=== PATIENT | female | born 1970 | race American Indian/Alaskan Native ===

== ENCOUNTER 2017-01-13 23:45 | Emergency (ER) | payer OTHER ==
[2017-01-14 01:37] LABS: Basophils % (Auto) 0.7 % (0.0-1.8); Hemoglobin 10.2 gm/dl (10.1-14.3); Mean Corpuscular HGB Conc 32 % (30-34); Mean Corpuscular Hemoglobin 26 pg (28-32); Mean Corpuscular Volume 82 fl (79-97); Platelet Count 171 K/mm3 (140-440); Red Blood Count 3.93 M/mm3 (3.65-5.03); Red Cell Distribution Width 17.3 % (13.2-15.2); White Blood Count 5.8 K/mm3 (4.5-11.0)
[2017-01-14 01:45] LABS: Anion Gap 16 mmol/L; BUN/Creatinine Ratio 15.71; Blood Urea Nitrogen 11 mg/dL (7-17); Calcium 8.8 mg/dL (8.4-10.2); Carbon Dioxide 21 mmol/L (22-30); Chloride 101.9 mmol/L (98-107); Glucose 100 mg/dL (65-100); Sodium 135 mmol/L (137-145)
[2017-01-14 02:22] LABS: Erythrocyte Sedimentation Rate 14 mm/Hr (0-20)
[2017-01-14] MEDS ORDERED: BENADRYL PO ONE (06:38)
--- NOTE | 2017-01-14 08:09 | Emergency Department Report ---
ED Rash HPI - HPI Chief Complaint: Skin Rash Stated Complaint: RASH/POSS ALLERGIC REACTION Time Seen by Provider: 01/14/17 07:48 Duration: 2 weeks Location: Chest, Back, Abdomen, Upper Extremities Suspected Cause: Unknown Rash Symptoms: Yes Itching, No Facial Swelling, No Tongue/Oral Swelling, No Breathing Difficulties, No Choking Sensation, No Wheezing/Dyspnea, No Peeling, No Blistering, No Fever, No Lightheaded, No Malaise, No Myalgias Severity: moderate Other History: This is a 46-year-old female nontoxic, well nourished in appearance, no acute signs of distress the presented to the ED complaining of rash with itching 2 weeks. Patient stated she had been drinking coffee at work and [employer] and realized there was bubbles and believes she was poisoned which develop or skin rash. Patient stated ever since she stopped drinking coffee for work. She has decreased but still present. She stated the rash is spreading more as days go by. Patient denies any sick contact. Denies shortness of breath, chest pain, fever, chills, headache, nausea, vomiting, numbness or tingling. Patient denies any allergies. Denies past medical history. Denies pain. Last menstrual period 12/27/16. Patient denies any chance of being . ED Review of Systems ROS: Stated complaint: RASH/POSS ALLERGIC REACTION Other details as noted in HPI Constitutional: denies: chills, fever Eyes: denies: eye pain, eye discharge, vision change ENT: denies: ear pain, throat pain Respiratory: denies: cough, shortness of breath, wheezing Cardiovascular: denies: chest pain, palpitations Endocrine: no symptoms reported Gastrointestinal: denies: abdominal pain, nausea, diarrhea Genitourinary: denies: urgency, dysuria, discharge Musculoskeletal: denies: back pain, joint swelling, arthralgia Skin: rash, pruritus. denies: lesions Neurological: denies: headache, weakness, paresthesias Psychiatric: denies: anxiety, depression Hematological/Lymphatic: denies: easy bleeding, easy bruising ED Past Medical Hx - Surgical History Past Surgical History?: Yes Additional Surgical History: ,tubaligation - Social History Smoking Status: Current Every Day Smoker Substance Use Type: Alcohol - Medications Home Medications: Home Medications Medication Instructions Recorded Confirmed Last Taken Type Ibuprofen [Motrin] 600 mg PO Q8H PRN #15 tablet 08/24/16 Unknown Rx Fluconazole [Diflucan TAB] 200 mg PO 1XW #3 tablet 01/14/17 Unknown Rx diphenhydrAMINE [Benadryl CAP] 25 mg PO Q6HR PRN #20 capsule 01/14/17 Unknown Rx Rash Exam - Exam General: Vital signs noted. No distress. Alert and acting appropriately. GENERAL: The patient is a well-developed, well-nourished female in no apparent distress. Patient is alert and acting appropriately for age. Alert and oriented 3, no apparent distress, normal gait, atraumatic. HEENT: Head is normocephalic and atraumatic. PERRL, Extraocular muscles are intact. Pupils are equal, round, and reactive to light and accommodation. Nares appeared normal. Mouth is well hydrated and without lesions. Mucous membranes are moist. Posterior pharynx clear of any exudate or lesions. Mouth is well hydrated and without lesions. Tonsils not erythematous or swollen. Uvula midline. Tongue elevated. Mucous members are moist. Posterior pharynx clear, no exudate or lesions. Patent airways. NECK: Supple. No carotid bruits. No lymphadenopathy or thyromegaly.nontender. No meningitic signs are noted. LUNGS: Clear to auscultation. Non labor breathing. No intercostal retractions. Symmetrical with respiration, no wheezing, no rales, or crackles. HEART: Regular rate and rhythm without murmur, rubs or gallops. No reproducible. S1, S2 present, regular rate and rhythm without murmur, no rubs, no gallops. ABDOMEN: Soft, nontender, and nondistended. Positive bowel sounds. No hepatosplenomegaly was noted. No guarding or rebound tenderness, negative epigastric bruit. Negative psoas sign, negative diaz sign, negative McBurneys sign EXTREMITIES: Without any cyanosis, clubbing, rash, lesions or edema. Peripheral pulses intact. Capillary refill less than 2 seconds. Full range of motion bilaterally. NEUROLOGIC: Cranial nerves II through XII are grossly intact. Alert and oriented x 3. Normal gait. Symmetrical strength and sensation. Reflexes 2+ throughout. Cerebellar testing normal. GCS score of 15. PSYCHIATRIC: Normal affect with no suicidal or homicidal ideations. Skin: Diffuse circular pruritic erythematosus with scaling patch/plaque present. There is central clearing with raised border. HEENT: No Periorbital Edema, No Conjuctival Injection, No Chemosis, No Perioral Edema, No Tongue Edema, No Uvular Edema, No Compromised Airway, No Drooling Lungs: Yes Good Air Exchange (Normal Breath Sounds), No Wheezes, No Ronchi, No Stridor, No Cough, No Labored Respirations, No Retractions, No Use of Accessory Muscles, No Other Abnormal Lung Sounds Heart: Yes Regular, No Murmur Skin: Yes Erythema, Yes Encrustations, No Urticarial Rash, No Maculopapular Rash , No Morbilliform rash, No Bulla(e), No Excoriations, No Weeping, No Tenderness , No Edema Other: Positive: Abdomen Normal, Neurologic Normal, Musculoskeletal Normal ED Course Vital Signs 01/14/17 00:40 Temperature 98.7 F Pulse Rate 71 Respiratory 20 Rate Blood Pressure 148/96 [Right] O2 Sat by Pulse 100 Oximetry - Reevaluation(s) Reevaluation #1: 01/14/17 08:12 Patient is able speak in full sentences with no signs of distress noted. ED Medical Decision Making - Lab Data Result diagrams: 01/14/17 01:02 01/14/17 01:02 - Medical Decision Making ED course; this is a 46-year-old female that presents with tinea corporis Patient was examined myself. Patient received Benadryl in the ED and stated itching has subsided. Physical exam consists of ringworm appearance the patient will be treated with Itraconazole x1 week. I instructed patient not to consume any alcohol during treatment and one week past treatment. I also instructed patient to follow up with her primary care doctor in 3-5 days or if symptoms worsen and continue return to emergency room as soon as possible. At time time of discharge, the patient does not seem toxic or ill in appearance. No acute signs of distress noted. Patient agrees to discharge treatment plan of care. No further questions noted by the patient. Pharmacy called me and stated Itraconazole is not covered by her insurance. Patient then received Fluconzaole once weekly for 3 weeks. Critical care attestation.: If time is entered above; I have spent that time in minutes in the direct care of this critically ill patient, excluding procedure time. ED Disposition Clinical Impression: Tinea corporis Disposition: DC-01 TO HOME OR SELFCARE Is pt being admited?: No Does the pt Need Aspirin: No Condition: Stable Instructions: Diphenhydramine (By mouth), Itraconazole (By mouth), Tinea Corporis (ED) Additional Instructions: Follow-up with her primary care doctor in 3-5 days or if symptoms worsen or continue return to emergency room as soon as possible. Take full courses of antibiotic and was prescribed to. Do not consume any alcohol during treatment of antibiotics and one week after treatment of antibiotics. Take Benadryl as prescribed as needed for itching. Do not operate any machinery while taking Benadryl due to sedation/drowsiness. Prescriptions: diphenhydrAMINE [Benadryl CAP] 25 mg PO Q6HR PRN #20 capsule PRN Reason: Itching Fluconazole [Diflucan TAB] 200 mg PO 1XW #3 tablet Referrals: PRIMARY CAREMD [Primary Care Provider] - 3-5 Days EILEEN SHAW MD [Staff Physician] - 3-5 Days [facility] [Outside] - 3-5 Days [facility] [Outside] - 3-5 Days Forms: Work/School Release Form(ED)
[2017-01-14 08:28] VITALS: BP 138/86
== END 2017-01-14 08:27 | disposition home or self-care (01) ==
LOC: ED 23:45
DX: B35.4 Tinea corporis (principal); F17.200 Nicotine dependence, unspecified, uncomplicated
CPT/HCPCS: 36415; 80048; 85025; 85652; 86140; 99283; Q0163